=== PATIENT | male | born 1960 | race Caucasian/White ===

== ENCOUNTER 2018-04-07 09:52 | Emergency (ER) | payer BC ==
--- NOTE | 2018-04-07 11:13 | RAD ---
RIGHT KNEE FOUR VIEWS: History: Right knee pain. FINDINGS: There are some minimal arthritic changes of the knee. There is some suggestion of some minimal medial compartment narrowing. There are small patellofemoral spurs. There is a joint effusion noted. IMPRESSION: Minimal arthritic change of the knee with suggestion of joint effusion. POS: [facility]
== END 2018-04-07 11:19 | disposition home or self-care (01) ==
LOC: ERS 09:52
DX: M25.561 Pain in right knee (principal); I10 Essential (primary) hypertension